=== PATIENT | female | born 1980 | race African-American/Black ===

== ENCOUNTER 2022-10-11 10:58 | Emergency (ER) | payer MEDICAID ==
[~2022-10-11] VITALS: Ht 165.1 cm; Wt 54.6 kg
[2022-10-11 12:09] LABS: BASOPHILS % 0.7 % (0.0-2.0); EOSINOPHILS % 0.9 % (0.0-5.0); HEMATOCRIT. 41.3 % (36.0-48.0); HEMOGLOBIN. 14.2 g/dL (12.0-16.0); LYMPHOCYTES % 32.3 % (20.0-50.0); MEAN CORPUSCULAR HEMOGLOBIN 33.4 pg (28.0-32.0); MEAN CORPUSCULAR VOLUME 96.9 fL (81.0-99.0); MEAN PLATELET VOLUME 8.7 fl (7.4-10.4); MONOCYTES % 7.6 % (2.0-8.0); NEUTROPHILS % 58.5 % (40.0-76.0); PLATELET 167 x1000/uL (130-400); RED BLOOD CELL COUNT 4.26 mill/uL (4.2-5.4)
[2022-10-11] MEDS ORDERED: METHOCARBAMOL 500MG TABLET PO ONE (12:15)
[2022-10-11] MEDS ORDERED: ACETAMINOPHEN 325MG TABLET PO ONE (12:15)
[2022-10-11 12:18] LABS: CHLORIDE 108 mEq/L (98-107)
[2022-10-11 12:35] LABS: ETHANOL BLOOD < 10 mg/dL
[2022-10-11 13:36] VITALS: BP 96/63
== END 2022-10-11 16:40 ==
LOC: ER 10:58 → EDBEDREQTM 12:40 → EDBEDREQSVC 12:40 → EDBEDREQ 12:40 → CANBEDREQ 16:34 → ER 16:40
DX: I63.9 Cerebral infarction, unspecified (principal); R53.1 Weakness; I10 Essential (primary) hypertension; Z98.890 Other specified postprocedural states
CPT/HCPCS: 36415; 70450; 71045; 80053; 80320; 82962; 84484; 85025; 93005; 99285; Z7610; G0480

== ENCOUNTER 2024-12-08 12:58 | Emergency (ER) | payer MEDICAID ==
[~2024-12-08] VITALS: Ht 167.6 cm; Wt 60.0 kg
[2024-12-08 13:09] VITALS: BP 104/71; TEMP 37.2; O2SAT 100
[2024-12-08 13:11] VITALS: PULSE 100; RESP 16; O2SAT 100
== END 2024-12-08 16:26 ==
LOC: ER 12:58
DX: M54.9 Dorsalgia, unspecified (principal); R51.9 Headache, unspecified; Z88.5 Allergy status to narcotic agent; Z91.041 Radiographic dye allergy status; Z98.890 Other specified postprocedural states; Z90.49 Acquired absence of other specified parts of digestive tract; Z86.73 Personal history of transient ischemic attack (TIA), and cerebral infarction without residual deficits; Z53.21 Procedure and treatment not carried out due to patient leaving prior to being seen by health care provider; V49.9XXA Car occupant (driver) (passenger) injured in unspecified traffic accident, initial encounter; Y93.89 Activity, other specified; Y92.89 Other specified places as the place of occurrence of the external cause; Y99.8 Other external cause status